=== PATIENT | female | born 1960 | race Two or more races ===

== ENCOUNTER 2019-10-08 23:09 | Emergency (ER) | payer OTHER ==
[~2019-10-08] VITALS: Ht 154.9 cm; Wt 68.0 kg
[2019-10-09] MEDS ORDERED: MEDROLPACK PO (05:29)
[2019-10-09] MEDS ORDERED: TUSNEL LIQUID178 ML PO (05:29)
[2019-10-09] MEDS ORDERED: TESSALON PERLE100 M1 PO (05:29)
[2019-10-09] MEDS ORDERED: IPRAT-ALBUT 0.5-3 ML IH (05:29)
== END 2019-10-09 05:52 | disposition home or self-care (01) ==
LOC: ER 23:09
DX: J45.901 Unspecified asthma with (acute) exacerbation (principal)

== ENCOUNTER 2020-04-18 17:11 | Inpatient (IN) | payer OTHER ==
[~2020-04-18] VITALS: Ht 154.9 cm; Wt 71.2 kg
[~2020-04-18 17:11] MED LIST: IPRAT-ALBUT 0.5-3 ML IH; MEDROLPACK PO; TESSALON PERLE100 M1 PO; TUSNEL LIQUID178 ML PO
[2020-04-18] MEDS ORDERED: CLONAZEPAM0.125 MG (17:29)
[2020-04-18] MEDS ORDERED: COZAAR25 MG (17:29)
[2020-04-18] MEDS ORDERED: SYNTHROID50 MCG (17:31)
== END 2020-04-23 13:42 | disposition home or self-care (01) | DRG 419 ==
LOC: ER 17:11 → MEDI 21:26 → SEC-K 21:26 → MEDI 04-19 01:17
PROVIDERS: Surgery; ADMIT Internal Medicine; ATTEND Internal Medicine
PROC: 3E0F7GC Introduction of Other Therapeutic Substance into Respiratory Tract, Via Natural or Artificial Opening (ICD-10-PCS; 2020-04-18)
PROC: BW40ZZZ Ultrasonography of Abdomen (ICD-10-PCS; 2020-04-18)
PROC: BF37ZZZ Magnetic Resonance Imaging (MRI) of Pancreas (ICD-10-PCS; 2020-04-20)
PROC: BF10YZZ Fluoroscopy of Bile Ducts using Other Contrast (ICD-10-PCS; 2020-04-22)
PROC: 0FT44ZZ Resection of Gallbladder, Percutaneous Endoscopic Approach (ICD-10-PCS; principal; 2020-04-22 07:00)
DX: K80.10 Calculus of gallbladder with chronic cholecystitis without obstruction (principal); I10 Essential (primary) hypertension; E03.8 Other specified hypothyroidism; E80.6 Other disorders of bilirubin metabolism; F32.9 Major depressive disorder, single episode, unspecified; J45.909 Unspecified asthma, uncomplicated; Z20.828 Contact with and (suspected) exposure to other viral communicable diseases

== ENCOUNTER 2020-10-15 10:50 | Outpatient (CLI) | payer OTHER ==
[~2020-10-15 10:50] MED LIST changes: +CLONAZEPAM0.125 MG; +COZAAR25 MG; +SYNTHROID50 MCG
== END 2020-10-15 10:58 | disposition home or self-care (01) ==
LOC: SONOGRAMA 10:50
PROVIDERS: ATTEND Pathology Anatomic Pathology & Clinical Pathology
DX: E04.2 Nontoxic multinodular goiter (principal)

== ENCOUNTER 2020-11-15 11:35 | Outpatient (CLI) | payer OTHER | END 2020-11-15 16:37 | disposition home or self-care (01) | LOC: OFIC 805 11:35 | PROVIDERS: ATTEND Otolaryngology | DX: R13.19 Other dysphagia (principal); K21.9 Gastro-esophageal reflux disease without esophagitis ==

== ENCOUNTER 2020-11-29 10:07 | Outpatient (CLI) | payer OTHER | END 2020-11-29 10:21 | disposition home or self-care (01) | LOC: SONOGRAMA 10:07 | PROVIDERS: ATTEND Otolaryngology | DX: E04.2 Nontoxic multinodular goiter (principal) ==